=== PATIENT | female | born 1990 | race Caucasian/White ===

== ENCOUNTER → 2018-02-22 19:01 | Outpatient (CLI) | payer OTHER, SELFPAY ==
[2018-02-22 19:51] LABS: Basophils # 0.1 K/mm3 (0-0.2); Basophils % 0.6 % (0.1-2.0); Eosinophils # 0.1 K/mm3 (0.0-0.4); Eosinophils % 0.5 % (0.1-12.0); Hematocrit 44.7 % (37.0-47.0); Hemoglobin 14.6 g/dL (12.2-16.2); Lymphocytes # 2.9 K/mm3 (0.7-4.5); Lymphocytes % 27.4 % (10-50); Mean Corpuscular HGB Conc 32.7 g/dL (31.8-35.4); Mean Corpuscular Hemoglobin 30.3 pg (27.0-31.2); Mean Corpuscular Volume 92.7 fl (81-99); Mean Platelet Volume 7.1 fl (7.4-10.4); Monocytes # 0.5 K/mm3 (0.1-1.0); Neutrophils % 66.5 % (37.0-80.0); Platelet Count 565 K/mm3 (142-424); Red Blood Count 4.82 M/mm3 (4.20-5.40); Red Cell Distribution Width 12.9 % (11.5-17.5); White Blood Count 10.5 K/mm3 (4.8-10.8)
[2018-02-22 20:42] LABS: Alanine Aminotransferase 23 U/L (12-78); Albumin Level 4.5 gm/dL (3.4-5.0); Albumin/Globulin Ratio 1.2 (1.1-1.8); Alkaline Phosphatase 86 U/L (46-116); Anion Gap 17.2 mEq/L (5-15); Aspartate Amino Transferase 21 U/L (15-37); Bilirubin,Total 0.2 mg/dL (0.2-1.0); Blood Urea Nitrogen 9 mg/dL (7-18); Carbon Dioxide 24 mmol/L (21.0-32.0); Chloride 103 mmol/L (98-107); Chol/HDL Ratio 7.8 (1-3.5); Cholesterol 274 mg/dL (140-200); Creatinine,Serum 0.92 mg/dL (0.55-1.02); Estimated Glomerular Filt Rate 74 ml/min (>60); GFR (African American) 89 ML/MIN (>60); Globulin 3.9 gm/dl (1.3-3.2); Glucose 77 mg/dL (74-106); HDL Cholesterol 35 mg/dL (29-89); LDL Cholesterol 175 mg/dL (0-130); Potassium 4.2 mmoL/L (3.5-5.1); Sodium 140 mmol/L (136-145); T4 (Thyroxine) 8.1 ug/dl (4.7-13.3); Thyroid Stimulating Hormone 2.27 uIU/ml (0.358-3.740); Total Protein,Serum 8.4 gm/dL (6.4-8.2); Triglycerides 319 mg/dL (30-200); VLDL Cholesterol 64 mg/dL (0-40)
[2018-02-24 15:52] LABS: Vitamin D 25 Hydroxy 18.4 ng/mL (30.0-100.0)
== END ==
LOC: LAB 02-23 10:16 → LAB.DROPOF 02-23 11:11
PROVIDERS: PCP Nurse Practitioner Family; Visit Provider Nurse Practitioner Family
DX: F32.9 Major depressive disorder, single episode, unspecified (principal); R53.83 Other fatigue; I10 Essential (primary) hypertension
CPT/HCPCS: 80053; 80061; 82652; 84436; 84443; 85025

== ENCOUNTER → 2018-06-01 14:48 | Outpatient (CLI) | payer OTHER, SELFPAY | PROVIDERS: PCP Nurse Practitioner Family; Visit Provider Internal Medicine Cardiovascular Disease | DX: I49.3 Ventricular premature depolarization (principal); R00.2 Palpitations | CPT/HCPCS: 93225 ==

== ENCOUNTER → 2018-06-15 11:02 | Outpatient (CLI) | payer OTHER, SELFPAY ==
--- NOTE | 2018-06-15 11:04 | CA_ITS ---
PROCEDURE: 2-D M-mode and color Doppler study INDICATIONS FOR THE TEST: Chest pain COPD Heart Murmur Tobacco SmokingX Palpitations Fatigue Syncope Edema HypertensionXDiabetes Mellitus Rheumatic Fever SOB NUNES ObesityXHyperlipidemiaX Family History HDX Additional History ABN EKG,FREQ PVCS PATIENT INFORMATION HEIGHT: 62 WEIGHT:203 GENDER: Female B/P:156/108 2-D/M-MODE INTERPRETATION: 2-D MEASUREMENTS OBSERVED VALUES IN CMS Right Ventricular Dimension (RVDd) 2.6 Interventricular Septum (Thickness)(IVsd) .9 Left Ventricular Internal Dimensions(LVIDd) 5.3 Left Ventricular Posterior Wall (Thickness)(LVPWd) .9 Aortic Root 2.9 Aortic Cusp Separation 2.0 Left Atrial Dimensions (LAD) 3.1 2D 1. Left atrium is normal size, left ventricle is normal size, there is no concentric left ventricular hypertrophy, preserved left ventricular systolic function, visually estimated ejection fraction 55% with no regional wall motion abnormality. 2. The right atrium and right ventricle are normal size and contractility. 3. The aortic, mitral and tricuspid valvular grossly normal. 4. The pulmonic valve is poorly present. 5. No significant pericardial effusion noted. DOPPLER INTERROGATION: Doppler interrogation of the aortic, mitral and tricuspid valvular presence of mild mitral and tricuspid regurgitation, tricuspid regurgitation jet velocity is inadequate for calculation of the right ventricular systolic pressure, diastolic parameters are within normal range. CONCLUSION: 1. Normal left ventricular size, preserved left ventricular systolic function, visually estimated ejection fraction 55% with no regional wall motion abnormality, diastolic parameters are within normal range. 2. Mild mitral and tricuspid regurgitation 3. No significant pericardial effusion noted.
== END ==
PROVIDERS: PCP Emergency Medicine; Visit Provider Internal Medicine Cardiovascular Disease
DX: I49.3 Ventricular premature depolarization (principal); R00.2 Palpitations
CPT/HCPCS: 93306

== ENCOUNTER → 2018-07-05 12:44 | Outpatient (CLI) | payer OTHER, SELFPAY | PROVIDERS: PCP Nurse Practitioner Family; Visit Provider Internal Medicine Cardiovascular Disease | DX: R06.83 Snoring (principal); R40.0 Somnolence; E66.9 Obesity, unspecified; I49.3 Ventricular premature depolarization; R00.2 Palpitations; R53.83 Other fatigue; G47.30 Sleep apnea, unspecified | CPT/HCPCS: 95806 ==

== ENCOUNTER → 2022-05-05 12:02 | Outpatient (CLI) | payer OTHER, SELFPAY ==
[2022-05-05 12:35] LABS: Basophils # 0.1 K/mm3 (0-0.2); Basophils % 0.4 % (0.1-2.0); Eosinophils # 0.1 K/mm3 (0.0-0.4); Eosinophils % 0.9 % (0.1-12.0); Hematocrit 36.1 % (37.0-47.0); Hemoglobin 11.6 g/dL (12.2-16.2); Lymphocytes # 2.6 K/mm3 (0.7-4.5); Lymphocytes % 22.4 % (10-50); Mean Corpuscular HGB Conc 32.2 g/dL (31.8-35.4); Mean Corpuscular Hemoglobin 30.1 pg (27.0-31.2); Mean Corpuscular Volume 93.5 fl (81-99); Mean Platelet Volume 7.3 fl (7.4-10.4); Monocytes # 0.4 K/mm3 (0.1-1.0); Monocytes % 3.6 % (1.7-9.3); Neutrophils # 8.5 K/mm3 (1.8-7.8); Neutrophils % 72.7 % (37.0-80.0); Platelet Count 589 K/mm3 (142-424); Red Blood Count 3.86 M/mm3 (4.20-5.40); White Blood Count 11.6 K/mm3 (4.8-10.8)
[2022-05-05 13:20] LABS: Chloride 111 mmol/L (98-107); Sodium 140 mmol/L (136-145)
[2022-05-05 13:23] LABS: Alanine Aminotransferase 11 U/L (12-78); Albumin Level 4.3 g/dl (3.5-5.0); Albumin/Globulin Ratio 1.3 (1.1-1.8); Alkaline Phosphatase 85 U/L (38-126); Aspartate Amino Transferase 20 U/L (14-36); Bilirubin,Total 0.3 mg/dl (0.2-1.3); Blood Urea Nitrogen 4 mg/dl (7-17); Calcium 9.4 mg/dl (8.4-10.2); Carbon Dioxide 20 mmol/L (22.0-30.0); Estimated Glomerular Filt Rate 117 ml/min (>60); GFR (African American) 142 ML/MIN (>60); Globulin 3.3 g/dL (1.3-3.2); Glucose 78 mg/dl (74-100); Total Protein,Serum 7.6 g/dl (6.3-8.2)
[2022-05-05 19:53] LABS: Creatinine,Urine Random 18 mg/dL (Not Estab.)
[2022-05-05 21:07] LABS: Microalbumin/Creatinine Ratio 46.1
[2022-05-06 06:53] LABS: Rubella Antibodies, IgG 2.45 index (Immune >0.99)
[2022-05-06 08:58] LABS: HIV Screen 4th Generation wRfx Non Reactive (Non Reactive)
[2022-05-06 10:18] LABS: Rapid Plasma Reagin Ab Titer Non Reactive (NonRea<1:1)
[2022-05-08 22:44] LABS: Hepatitis B Surface Antigen NEGATIVE; Hepatitis C Antibody <0.1
== END ==
PROVIDERS: PCP Nurse Practitioner Family; Visit Provider Obstetrics & Gynecology
DX: Z34.90 Encounter for supervision of normal pregnancy, unspecified, unspecified trimester (principal); I10 Essential (primary) hypertension
CPT/HCPCS: 36415; 80053; 82043; 82570; 85025; 86593; 86703; 86762; 86850; 87086; 87340; 87380; G0432

== ENCOUNTER → 2022-05-13 14:11 | Outpatient (CLI) | payer OTHER, SELFPAY ==
--- NOTE | 2022-05-13 14:11 | US_ITS ---
FINAL REPORT CLINICAL HISTORY: OB complete FINDINGS: There is a single live intrauterine gestation. Presentation is breech. The cervix is closed and measures 3 cm. Placenta is anterior, grade 1. Heart rate is measured at 144 beats per minute. movement is noted. AMNIOTIC FLUID: Appropriate amount. MEASUREMENTS: ULTRASOUND AGE: 20 weeks 5 days. GESTATION AGE: 21 weeks 1 days. ESTIMATED WEIGHT: 349 grade GROWTH PERCENTILE: 12% LMP percentile BPD: 5.0 cm corresponding with 21 weeks 2 days. OFD: 6.2 cm corresponding with 21 weeks 0 days. HC: 17.8 cm corresponding with 20 weeks 2 days. AC: 14.8 cm corresponding with 20 weeks 1 days. FL: 3.4 cm corresponding with 20 weeks 5 days. CEREBELLUM: 2.1 cm corresponding with 21 weeks 1 days. HUMERUS: 3.3 cm corresponding with 21 weeks 2 days. HC/AC: 1.2 CI: 80% FL/BPD: 67% FL/AC: 23% IMPRESSION: Single living IUP with an ultrasound age of 20 weeks 5 days. No gross anomalies noted. Reviewed, Interpreted and Dictated by Daisy Meadows MD Transcribed by Aspen Ruth Authenticated and [facility]
== END ==
PROVIDERS: PCP Nurse Practitioner Family; Visit Provider Obstetrics & Gynecology
DX: Z34.90 Encounter for supervision of normal pregnancy, unspecified, unspecified trimester (principal)
CPT/HCPCS: 76811

== ENCOUNTER 2022-06-01 10:31 | Observation (INO) | payer OTHER, SELFPAY ==
[2022-06-01] VITALS (13 sets, daily range): BP systolic 103–149; BP diastolic 53–78; PULSE 40–76; RESP 16–17; TEMP 36.4–36.8; O2SAT 99; BMI 36.0
--- NOTE | 2022-06-01 10:42 | CA_ITS ---
APPROVED REPORT EXAM: Comprehensive 2D, Doppler, and color-flow Echocardiogram Tableau Analyst: Shawanda Kennedy RVT Ht: 5 ft 2 in Wt: 197lbs BSA: 1.90 BP: 190/90 mmHg Indications: 24 WKS PREG,HTN,SMOKER 2D Dimensions LVOT 2.11 cm (M/F) 1.5-2.5 LA Volume 41.60 mL LA Volume Index 21.89 mL/m2 (M/F) 16-34 M-Mode Dimensions RVDd 2.35 cm (0.9-2.6) LA Diam 4.17 cm (1.9-4.0) LVDd 4.93 cm (3.5-5.7) Ao Diam 2.82 cm (2.0-3.7) LVDs 3.41 cm (3.5-5.7) IVSd 1.37 cm (0.6-1.1) PWd 0.68 cm (0.6-1.1) EF (Teich) 58.20% FS 30.80% EDV (Teich) 114.40 mL ESV (Teich) 47.80 mL LV Diastology E Decel Time 150.00 (160-240 msec) E/A Ratio 1.1 MED E' 13.40 (< 7 cm/sec) E'/MED E' Ratio 5.73 (>14) LAT E' 7.10 (<10 cm/sec) E/LAT E' Ratio 10.82 (>14) Aortic Valve AO Peak GR. 7.60 mmHg Mitral Valve MV E Max Tino. 77.00 (40-130 cm/s) MV A Velocity 67.00 (40-130 cm/s) E/A Ratio 1.14 MV Decel. Time 150.00 (160-240 ms) MV PHT 44.00 ms Pulmonary Valve PV Peak Velocity 108.00 (50-150 cm/s) Tricuspid Valve TR P. Velocity 181.00 cm/s RAP Estimate 10.00 mmHg RVSP 23.10 mmHg Left Ventricle Left atrium is normal size left ventricle is normal size, estimated ejection fraction 55% with no regional wall motion abnormality, diastolic parameters are within normal range. Right Ventricle Right atrium and right ventricular normal size and contractility. Aortic Valve Aortic valve is grossly normal there is no aortic stenosis aortic insufficiency. Mitral Valve Mitral valve is grossly normal, there is no significant mitral regurgitation. Tricuspid Valve Tricuspid valve is grossly normal, there is no significant tricuspid regurgitation. Pulmonic Valve Pulmonic valve is poorly visualized. Great Vessels Aortic root is normal size. Inferior vena cava is normal size with normal inspiratory collapse. Pericardium No significant pericardial effusion noted. Conclusion 1. Normal left ventricular size preserved left ventricular systolic function, estimated ejection fraction 55% with no regional wall motion abnormality, diastolic parameters are within normal range. 2. No significant pericardial effusion noted. 3. Inferior vena cava is normal size with normal inspiratory collapse. Electronically signed by : Lupillo Mccoy MD 06/02/2022 05:58:54
[2022-06-01 11:38] LABS: Basophils # 0.1 K/mm3 (0-0.2); Basophils % 0.7 % (0.1-2.0); Eosinophils # 0.1 K/mm3 (0.0-0.4); Eosinophils % 0.5 % (0.1-12.0); Hematocrit 35.3 % (37.0-47.0); Hemoglobin 11.9 g/dL (12.2-16.2); Lymphocytes # 3.1 K/mm3 (0.7-4.5); Lymphocytes % 19.5 % (10-50); Mean Corpuscular HGB Conc 33.6 g/dL (31.8-35.4); Mean Corpuscular Hemoglobin 30.4 pg (27.0-31.2); Mean Corpuscular Volume 90.6 fl (81-99); Mean Platelet Volume 7.3 fl (7.4-10.4); Monocytes # 0.6 K/mm3 (0.1-1.0); Monocytes % 3.7 % (1.7-9.3); Neutrophils % 75.6 % (37.0-80.0); Platelet Count 637 K/mm3 (142-424); Red Cell Distribution Width 13.3 % (11.5-17.5); White Blood Count 15.9 K/mm3 (4.8-10.8)
[2022-06-01 11:40] LABS: Coronavirus 19, PCR Not Detected (NotDetected); Influenza A, PCR Not Detected (NotDetected); Influenza B, PCR Not Detected (NotDetected); MANUAL DIFFERENTIAL MANUAL DIFFERENTIAL (MANUAL DIFF)
[2022-06-01 12:16] LABS: Activated Partial Thrombo Time 27.1 seconds (22.8-30.6); Fibrinogen 712 mg/dL (229.9-363.5); Prothrombin Time 9.8 seconds (10.1-12.5)
[2022-06-01 12:19] LABS: Lymphocytes % 23 % (10-50); Monocytes % 6 % (2-9); Neutrophils % 71 % (42-76); Platelet Estimate Slight Increase; RBC Morphology Normal; Total Cells Counted 100
--- NOTE | 2022-06-01 12:50 | EXP.CARD.CON ---
History of Present Illness History of Present Illness Consult date: 06/01/22 Requesting physician: Monica Lainez Chief complaint: Hypertension Additional Medical History:: Significant past medical history Currently 23 weeks, 3 days Hypertension History of medical noncompliance History of present illness: 31-year-old white female with above past medical history presented to [facility] office for routine follow-up for . Patient is currently 23 weeks, 3 days with first . Patient reported history of a elevated blood pressure readings in the 140s-150s and dizziness. Patient has history of hypertension in which she has been prescribed labetalol previously. Patient reports she took it for 3 days and discontinued it due to dizziness and not feeling well on it. Patient denies headache, chest pain, shortness of breath, lower extremity edema, vaginal bleeding or abdominal pain currently. Patient states she does not want to be placed back on labetalol and makes her feel too bad. [facility] Disclaimer: The information contained in this section may have been updated after the patient was seen, as this information can be updated by other users. Medical History (Updated 06/01/22 @ 13:00 by Shante Lancaster APRN) Headache Hypertension affecting Maternal obesity affecting , antepartum Nausea and vomiting in Family History Mother Heart attack, Onset Age: 47 Other Stroke Social History Smoking Status: Current every day smoker tobacco type: cigarettes packs per day: 1 alcohol intake: never substance use type: denies use and marijuana current occupational status: employed Travel in the last 8 weeks: None Review of Systems Review of Systems Review of systems:: pertinent systems reviewed and negative unless documented below Exam Data for Last 24 hours Vital signs and Labs for Last 24 Hours: Pulse Resp BP 44 L 16 118/62 06/01/22 11:54 06/01/22 11:54 06/01/22 11:54 Laboratory Results - last 24 hr 06/01/22 11:00: WBC 15.9 H, RBC 3.90 L, Hgb 11.9 L, Hct 35.3 L, MCV 90.6, MCH 30.4, MCHC 33.6, RDW 13.3, Plt Count 637 H, MPV 7.3 L, Neut % (Auto) 75.6, Lymph % (Auto) 19.5, [place] % (Auto) 3.7, Eos % (Auto) 0.5, Baso % (Auto) 0.7, Neut # (Auto) 12.0 H, Lymph # (Auto) 3.1, [place] # (Auto) 0.6, Eos # (Auto) 0.1, Baso # (Auto) 0.1, Total Counted 100, Neutrophils % (Manual) 71, Lymphocytes % (Manual) 23, Monocytes % (Manual) 6, Platelet Estimate Slight increase, RBC Morphology Normal 06/01/22 11:00: PT 9.8 L, INR 0.90, APTT 27.1, Fibrinogen 712 H 06/01/22 11:00: SARS-CoV-2 (PCR) Not detected, Influenza A Untype (PCR) Not detected, Influenza Type B (PCR) Not detected I & O for Last 24 hours: Intake & Output 05/29/22 05/30/22 05/31/22 06/01/22 23:59 23:59 23:59 23:59 Weight 197 lb Constitutional Constitutional: no acute distress *Routine Respiratory Exam Respiratory: Present CTA bilaterally and symmetric chest movement *Routine Cardiovascular Exam Cardiovascular: Present RRR, Normal S1 and Normal S2 *Routine Abdominal Exam Abdominal: Present soft and normoactive bowel sounds; Absent tenderness *Routine Extremities Exam Extremities: Present full ROM and normal capillary refill; Absent edema *Routine Skin Exam Skin: Present intact, dry and warm Detailed Neck Exam: Thyroids Thyroid: Absent bruit Meds Home Medications and Allergies Home Medications Medication Instructions Recorded Confirmed Type PNV no.63-iron,carbonyl 27mg-folic 1 cap PO DAILY #30 caps 05/05/22 06/01/22 Rx acid 800 mcg-dha 200 mg capsule labetalol 100 mg tablet 100 mg PO BID #60 tabs 05/05/22 06/01/22 Rx ondansetron 4 mg disintegrating 4 mg PO Q8H PRN nausea and 05/05/22 06/01/22 Rx tablet vomiting #30 tabs New Prescriptions to Start Prescriptions: Allergies
[2022-06-01 13:04] LABS: Anion Gap 14.7 mEq/L (5-15); Blood Urea Nitrogen 8 mg/dl (7-17); Carbon Dioxide 19 mmol/L (22.0-30.0); Chloride 110 mmol/L (98-107); Creatinine Clearance Estimated 166 mL/min (50-200); Estimated Glomerular Filt Rate 98 ml/min (>60); GFR (African American) 119 ML/MIN (>60); Glucose 75 mg/dl (74-100); Potassium 3.7 mmoL/L (3.5-5.1); Sodium 140 mmol/L (136-145)
[2022-06-01 13:05] LABS: Alanine Aminotransferase 15 U/L (12-78); Aspartate Amino Transferase 24 U/L (14-36); Calcium 9.7 mg/dl (8.4-10.2); Magnesium 1.6 mg/dl (1.6-2.3)
[2022-06-01 13:50] LABS: Microscopic, Urine URINE MICROSCOPIC (MICROSCOPIC)
--- NOTE | 2022-06-01 14:08 | ECG_ITS ---
APPROVED REPORT Exam: Resting ECG HR:92 bpm ECG Measurements Heart Rate 92 AXES MI 122 P 143 QRSd 93 QRS 146 QT 373 T 0 QTc 422 Conclusion SINUS RHYTHM WITH FREQUENT VENTRICULAR PREMATURE COMPLEXES IN A BIGEMINAL PATTERN LEFT POSTERIOR FASCICULAR BLOCK [QRS AXIS > 109, INFERIOR Q] NONSPECIFIC ST & T-WAVE ABNORMALITY ABNORMAL ECG UNCONFIRMED REPORT Electronically signed by : Waldemar Patricia MD 06/01/2022 21:14:22
[2022-06-01 15:04] LABS: Appearance,Urine CLEAR (Clear); Bilirubin,Urine Negative (Negative); Blood, Urine Negative (Negative); Color,Urine YELLOW (Yellow); Glucose,Urine (UA) Negative (Negative); Ketones,Urine Negative (Negative); Leukocyte Esterase,Urine 1+ (Negative); Nitrate,Urine Negative (Negative); Protein,Urine Negative (Negative); Urobilinogen,Urine 0.2 EU/dl (0.2)
[2022-06-01 15:16] LABS: Squamous Epithelial Cell,Urine Occasional #/hpf (0-5)
--- NOTE | 2022-06-01 15:23 | PC.NURSE ---
called to check on pt report given. Orders given to keep pt overnight and she will round in the morning
--- NOTE | 2022-06-01 15:25 | PC.NURSE ---
Spoke with pharmacy about carvedilol use while . ACOG recommends use of nifedipine, Hydralizine, or labetalol during .
--- NOTE | 2022-06-01 15:30 | PC.NURSE ---
Shante in cardiology notified of medication not being recommended during . orders placed for bisprolol 10mg
[2022-06-01 16:26] LABS: D-Dimer 0.65 ug/mL (0.0-0.5)
[2022-06-01 16:56] LABS: Amphetamine/Metha Screen,Urine Negative ng/ml (<1000); Barbiturates Screen,Urine Negative ng/ml (<200); Benzodiazepines Screen,Urine Negative ng/ml (<200); Cannabinoid Screen,Urine Negative ng/ml (<50); Cocaine Screen,Urine Negative ng/ml (<300); Methadone Screen,Urine Negative ng/ml (<300); Opiate Screen,Urine Negative ng/ml (<300); Phencyclidine Screen,Urine Negative ng/ml (<25)
[2022-06-01 17:28] LABS: Uric Acid 5.1 mg/dl (2.5-6.2)
[2022-06-02 01:57] VITALS: BP 102/57; PULSE 40
[2022-06-02 04:04] VITALS: BP 107/58; PULSE 40; RESP 17; TEMP 37; O2SAT 99
[2022-06-02 06:05] VITALS: BP 117/56; PULSE 39
--- NOTE | 2022-06-02 07:17 | HMH.PHAINT1 ---
Pharmacy Intervention Comments: MEDICATION RECONCILIATION COMPLETED ON PATIENT USING EXTERNAL FILL HISTORY FROM PHARMACY. -OLIVER MARTINEZ, DARIOD
--- NOTE | 2022-06-02 07:45 | ECG_ITS ---
APPROVED REPORT Exam: Resting ECG HR:73 bpm ECG Measurements Heart Rate 73 AXES CA 151 P 29 QRSd 97 QRS 42 QT 390 T 7 QTc 416 Conclusion SINUS ARRYTHMIA WITH OCCASIONAL VENTRICULAR PREMATURE COMPLEXES BORDERLINE ECG UNCONFIRMED REPORT Electronically signed by : Waldemar Patricia MD 06/02/2022 08:51:51
--- NOTE | 2022-06-02 07:56 | EXP.CARD.PN ---
Subjective Subjective Date: 06/02/22 Time: 08:00 Principal diagnosis: htn during Interval history: doing well, no complaints. labs reviewed. BP improved to 117/56 Exam Data for Last 24 hours Vital signs and Labs for Last 24 Hours: Temp Pulse Resp BP Pulse Ox 98.6 F 39 L 17 117/56 L 99 06/02/22 04:04 06/02/22 06:05 06/02/22 04:04 06/02/22 06:05 06/02/22 04:04 Laboratory Results - last 24 hr 06/01/22 10:36: Urine Color Yellow, Urine Appearance Clear, Urine pH 7.0, Ur Specific [place] 1.010, Urine Protein Negative, Urine Glucose (UA) Negative, Urine Ketones Negative, Urine Blood Negative, Urine Nitrate Negative, Urine Bilirubin Negative, Urine Urobilinogen 0.2, Ur Leukocyte Esterase 1+ A, Urine RBC None, Urine WBC None, Ur Squamous Epith Cells Occasional, Urine Bacteria None 06/01/22 10:36: Urine Opiates Screen Negative, Urine Methadone Screen Negative, Ur Barbituates Screen Negative, Ur Phencyclidine Scrn Negative, Ur Amphetamines Screen Negative, U Benzodiazepines Scrn Negative, Urine Cocaine Screen Negative, U Marijuana (THC) Screen Negative 06/01/22 11:00: WBC 15.9 H, RBC 3.90 L, Hgb 11.9 L, Hct 35.3 L, MCV 90.6, MCH 30.4, MCHC 33.6, RDW 13.3, Plt Count 637 H, MPV 7.3 L, Neut % (Auto) 75.6, Lymph % (Auto) 19.5, [place] % (Auto) 3.7, Eos % (Auto) 0.5, Baso % (Auto) 0.7, Neut # (Auto) 12.0 H, Lymph # (Auto) 3.1, [place] # (Auto) 0.6, Eos # (Auto) 0.1, Baso # (Auto) 0.1, Total Counted 100, Neutrophils % (Manual) 71, Lymphocytes % (Manual) 23, Monocytes % (Manual) 6, Platelet Estimate Slight increase, RBC Morphology Normal 06/01/22 11:00: PT 9.8 L, INR 0.90, APTT 27.1, Fibrinogen 712 H 06/01/22 11:00: D-Dimer 0.65 H, Sodium 140, Potassium 3.7, Chloride 110 H, Carbon Dioxide 19 L, Anion Gap 14.7, BUN 8, Creatinine 0.70, Estimated Creat Clear 166, Estimated GFR 98, Est GFR ( Amer) 119, Glucose 75, Uric Acid 5.1, Calcium 9.7, Magnesium 1.6, AST 24, ALT 15 06/01/22 11:00: SARS-CoV-2 (PCR) Not detected, Influenza A Untype (PCR) Not detected, Influenza Type B (PCR) Not detected I & O for Last 24 hours: Intake & Output 05/30/22 05/31/22 06/01/22 06/02/22 23:59 23:59 23:59 23:59 Weight 197 lb Constitutional Constitutional: no acute distress *Routine Respiratory Exam Respiratory: Present CTA bilaterally and symmetric chest movement *Routine Cardiovascular Exam Cardiovascular: Present RRR, Normal S1 and Normal S2 *Routine Abdominal Exam Abdominal: Present soft and normoactive bowel sounds; Absent tenderness *Routine Extremities Exam Extremities: Present full ROM and normal capillary refill; Absent edema *Routine Skin Exam Skin: Present intact, dry and warm Detailed Neck Exam: Thyroids Thyroid: Absent bruit Progress Note: A&P Assessment and plan (1) HTN (hypertension): Status: Chronic (2) Bradycardia: Status: Acute (3) : Status: Acute Assessment and Plan Assessment and Plan for All Diagnoses:: HTN-uncontrolled/23 weeks -Echo EF of 55 with irregular rhythm reported. -EKG shows- SR with frequent ventricular premature complexes in a bigeminal pattern, rate 92 -Patient evaluated per Dr. Waters, recommend starting patient on bisoprolol 10mg daily for rate and BP control. He recommends cardiac MRI after for further eval. Patient is agreeable with plan. 06/02/2022- Bp improved to 117/56. Repeat EKG this am shows significantly fewer PVCs and a rate of 73 Current smoker -smoking cessation advised CV summary 06/02/2022: CV stable for dc home. Please send patient home on bisoprolol 10mg daily and have patient follow up in office in 1 week. We will consider Cardiac MRI after for further evaluation.
[2022-06-02 08:00] VITALS: BP 117/56; PULSE 50; RESP 17; TEMP 36.6
--- NOTE | 2022-06-02 09:11 | EXP.HPDC ---
General Admission date:: 06/01/22 Discharge date: 06/02/22 *Chief complaint: Elevated blood pressure, headache *History of present illness: Mrs Radha Thomas is a 31 yo at 23w4d admitted for observation to [facility] Delivery on 06/01/22 for severe range BP in the office with headache x 3 days. She has history of chronic hypertension. She saw cardiology in the past, ~ 2-3 years ago. At her initial Ob visit, ~ 20 weeks, her BP was 158/88. She was started on Labetalol 100 mg BID but stated she stopped it after 3 days because she felt dizzy. She did not call the office or tell anyone she stopped it. Baby is very active. She denies vision changes and RUQ/epigastric pain and swelling. Denies chest pain and shortness of breath. She believed her BP was elevated and her headache was present secondary to stress at work. She did not take any medication for her headache. [facility] Disclaimer: The information contained in this section may have been updated after the patient was seen, as this information can be updated by other users. Medical History (Updated 06/02/22 @ 11:20 by Monica Lainez DO) 23 weeks gestation of Headache Hypertension affecting Maternal obesity affecting , antepartum Nausea and vomiting in Family History Mother Heart attack, Onset Age: 47 Other Stroke Social History Smoking Status: Current every day smoker tobacco type: cigarettes packs per day: 1 alcohol intake: never substance use type: denies use and marijuana current occupational status: employed Travel in the last 8 weeks: None Review of Systems Review of Systems Review of systems:: pertinent systems reviewed and negative unless documented below Constitutional Constitutional: Reports headache(s) (resolved since admission) ENT Ears, Nose, Mouth, and Throat: Reports headache(s) (resolved since admission) *Neurologic Neurologic: Reports headache(s) (resolved since admission) Exam Data for Last 24 hours Vital signs and Labs for Last 24 Hours: Temp Pulse Resp BP Pulse Ox 98.6 F 39 L 17 117/56 L 99 06/02/22 04:04 06/02/22 06:05 06/02/22 04:04 06/02/22 06:05 06/02/22 04:04 Laboratory Results - last 24 hr 06/01/22 10:36: Urine Color Yellow, Urine Appearance Clear, Urine pH 7.0, Ur Specific [place] 1.010, Urine Protein Negative, Urine Glucose (UA) Negative, Urine Ketones Negative, Urine Blood Negative, Urine Nitrate Negative, Urine Bilirubin Negative, Urine Urobilinogen 0.2, Ur Leukocyte Esterase 1+ A, Urine RBC None, Urine WBC None, Ur Squamous Epith Cells Occasional, Urine Bacteria None 06/01/22 10:36: Urine Opiates Screen Negative, Urine Methadone Screen Negative, Ur Barbituates Screen Negative, Ur Phencyclidine Scrn Negative, Ur Amphetamines Screen Negative, U Benzodiazepines Scrn Negative, Urine Cocaine Screen Negative, U Marijuana (THC) Screen Negative 06/01/22 11:00: WBC 15.9 H, RBC 3.90 L, Hgb 11.9 L, Hct 35.3 L, MCV 90.6, MCH 30.4, MCHC 33.6, RDW 13.3, Plt Count 637 H, MPV 7.3 L, Neut % (Auto) 75.6, Lymph % (Auto) 19.5, [place] % (Auto) 3.7, Eos % (Auto) 0.5, Baso % (Auto) 0.7, Neut # (Auto) 12.0 H, Lymph # (Auto) 3.1, [place] # (Auto) 0.6, Eos # (Auto) 0.1, Baso # (Auto) 0.1, Total Counted 100, Neutrophils % (Manual) 71, Lymphocytes % (Manual) 23, Monocytes % (Manual) 6, Platelet Estimate Slight increase, RBC Morphology Normal 06/01/22 11:00: PT 9.8 L, INR 0.90, APTT 27.1, Fibrinogen 712 H 06/01/22 11:00: D-Dimer 0.65 H, Sodium 140, Potassium 3.7, Chloride 110 H, Carbon Dioxide 19 L, Anion Gap 14.7, BUN 8, Creatinine 0.70, Estimated Creat Clear 166, Estimated GFR 98, Est GFR ( Amer) 119, Glucose 75, Uric Acid 5.1, Calcium 9.7, Magnesium 1.6, AST 24, ALT 15 06/01/22 11:00: SARS-CoV-2 (PCR) Not detected, Influenza A Untype (PCR) Not detected, Influenza Type B (PCR) Not detected I &
[2022-06-02 11:50] LABS: Total Protein 24 Hour,Urine 504 mg/24 hr (40-90); Total Volume,Urine 3150 mL (600-1600)
[2022-06-02 16:32] LABS: Ferritin 49.3 ng/ml (6.24-137)
== END 2022-06-02 12:00 | disposition home or self-care (01) ==
LOC: OBOUT 17:13 → OB 17:14
PROVIDERS: Admitting Provider Obstetrics & Gynecology; PCP Nurse Practitioner Family; Visit Provider Obstetrics & Gynecology
DX: O10.012 Pre-existing essential hypertension complicating pregnancy, second trimester (principal); Z3A.23 23 weeks gestation of pregnancy; O99.891 Other specified diseases and conditions complicating pregnancy; R00.1 Bradycardia, unspecified; I49.3 Ventricular premature depolarization; Z20.822 Contact with and (suspected) exposure to COVID-19
CPT/HCPCS: 80048; 80305; 81001; 82728; 83735; 84155; 84450; 84460; 84550; 85007; 85025; 85378; 85384; 85610; 85730; 87086; 93005; 93306; C9803; G0378; U0003; U0005

== ENCOUNTER 2022-06-07 14:31 | Outpatient (CLI) | payer OTHER, SELFPAY ==
[2022-06-07 14:57] VITALS: BMI 36.0
[2022-06-07 15:09] VITALS: BP 149/53; PULSE 55; RESP 18; TEMP 36.6; O2SAT 100; BMI 36.0
[2022-06-07 15:12] LABS: Microscopic, Urine URINE MICROSCOPIC (MICROSCOPIC)
[2022-06-07 15:21] LABS: Appearance,Urine CLEAR (Clear); Bilirubin,Urine Negative (Negative); Blood, Urine Negative (Negative); Color,Urine YELLOW (Yellow); Glucose,Urine (UA) Negative (Negative); Ketones,Urine Negative (Negative); Leukocyte Esterase,Urine 2+ (Negative); Nitrate,Urine Negative (Negative); Protein,Urine Negative (Negative); Specific Gravity, Urine 1.015 (1.005-1.030); Urobilinogen,Urine 0.2 EU/dl (0.2)
[2022-06-07 15:35] LABS: Amphetamine/Metha Screen,Urine Negative ng/ml (<1000); Benzodiazepines Screen,Urine Negative ng/ml (<200)
[2022-06-07 15:36] LABS: Barbiturates Screen,Urine Negative ng/ml (<200)
[2022-06-07 15:37] LABS: Cannabinoid Screen,Urine Negative ng/ml (<50); Methadone Screen,Urine Negative ng/ml (<300)
[2022-06-07 15:38] LABS: Cocaine Screen,Urine Negative ng/ml (<300); Opiate Screen,Urine Negative ng/ml (<300)
[2022-06-07 15:39] LABS: Phencyclidine Screen,Urine Negative ng/ml (<25)
[2022-06-07 15:42] LABS: Bacteria,Urine 1+ /lpf
== END 2022-06-07 15:31 | disposition home or self-care (01) ==
LOC: OBOUT 14:32 → OB 14:33
PROVIDERS: PCP Nurse Practitioner Family; Visit Provider Obstetrics & Gynecology
DX: O26.892 Other specified pregnancy related conditions, second trimester (principal); Z3A.24 24 weeks gestation of pregnancy
CPT/HCPCS: 80305; 81001; 87086; G0463

== ENCOUNTER → 2022-06-09 14:10 | Outpatient (CLI) | payer OTHER, SELFPAY ==
[2022-06-09 15:34] LABS: Magnesium 1.4 mg/dl (1.6-2.3)
[2022-06-09 15:52] LABS: Free Thyroxine Index 2.7 ug/dL (5.93-13.13); T4 (Thyroxine) 12.7 ug/dl (5.53-11.0); Triiodothryronine (T3) Uptake 21 % (23.5-40.5)
== END ==
PROVIDERS: PCP Nurse Practitioner Family; Visit Provider Physician Assistant
DX: I49.3 Ventricular premature depolarization (principal); Z3A.25 25 weeks gestation of pregnancy; I10 Essential (primary) hypertension; G89.29 Other chronic pain; R51.9 Headache, unspecified
CPT/HCPCS: 36415; 83735; 84436; 84443; 84479; 93225; 93226

== ENCOUNTER → 2022-07-01 08:37 | Outpatient (CLI) | payer OTHER, SELFPAY ==
[2022-07-01 09:32] LABS: Basophils % 0.3 % (0.1-2.0); Eosinophils # 0.1 K/mm3 (0.0-0.4); Eosinophils % 0.6 % (0.1-12.0); Hematocrit 32.9 % (37.0-47.0); Hemoglobin 10.7 g/dL (12.2-16.2); Lymphocytes # 2.4 K/mm3 (0.7-4.5); Lymphocytes % 18.9 % (10-50); Mean Corpuscular HGB Conc 32.5 g/dL (31.8-35.4); Mean Corpuscular Hemoglobin 29.9 pg (27.0-31.2); Mean Corpuscular Volume 92.1 fl (81-99); Mean Platelet Volume 7.3 fl (7.4-10.4); Monocytes # 0.5 K/mm3 (0.1-1.0); Monocytes % 3.6 % (1.7-9.3); Neutrophils # 9.7 K/mm3 (1.8-7.8); Neutrophils % 76.6 % (37.0-80.0); Platelet Count 588 K/mm3 (142-424); Red Blood Count 3.57 M/mm3 (4.20-5.40); Red Cell Distribution Width 13.5 % (11.5-17.5); White Blood Count 12.7 K/mm3 (4.8-10.8)
[2022-07-01 09:51] LABS: Glucose,Fasting 76 mg/dl (74-100)
[2022-07-01 10:29] LABS: Glucose 1 Hour 105 mg/dL (74-100)
[2022-07-01 12:32] LABS: Iron 86 ug/dL (37-170)
[2022-07-01 12:42] LABS: Total Iron Binding Capacity 350 ug/dL (265-497)
[2022-07-01 13:09] LABS: Ferritin 35.4 ng/ml (6.24-137)
== END ==
PROVIDERS: Internal Medicine Medical Oncology; PCP Nurse Practitioner Family; Visit Provider Obstetrics & Gynecology
DX: Z34.90 Encounter for supervision of normal pregnancy, unspecified, unspecified trimester (principal); Z3A.25 25 weeks gestation of pregnancy
CPT/HCPCS: 36415; 81270; 82728; 82951; 83540; 83550; 85025

== ENCOUNTER → 2022-07-13 14:49 | Outpatient (CLI) | payer OTHER, SELFPAY ==
--- NOTE | 2022-07-13 14:49 | US_ITS ---
FINAL REPORT CLINICAL HISTORY: growth and MADDIE COMPARISON: 05/13/2022 FINDINGS: There is a single live intrauterine gestation. Presentation is vertex/cephalic. The cervix is closed and measures 3.7 cm. Placenta is anterior, grade 1. movement is noted. Heart rate documented at 136 beats per minute. MEASUREMENTS: ULTRASOUND AGE: 28 weeks 3 days. GESTATION AGE: 29 weeks 6 days. ESTIMATED WEIGHT: 1130 g GROWTH PERCENTILE: Less than 2% BPD: 7.46 cm consistent with 30 weeks 0 days. OFD: 7.31 cm consistent with 29 weeks 3 days. HC: 26.09 cm consistent with 28 weeks 3 days. AC: 23.26 cm consistent with 27 weeks 5 days. FL: 5.16 cm consistent with 27 weeks 4 days. HC/AC: 1.12 CI: 82% FL/BPD: 69% FL/AC: 22% MADDIE: 9.38 cm. This is considered low normal. Visually however, there appears to be overall decrease of amniotic fluid volume. RUQ: 0.0 cm RLQ: 2.23 CM LUQ: 3.48 CM LLQ: 3.67 CM Limited evaluation of the cord with question of 2 vessel cord. IMPRESSION: Low normal MADDIE. Possible 2 vessel cord. Recommend level 1 ultrasound. Reviewed, Interpreted and Dictated by Nasreen Olivares MD Transcribed by Mecca Hernandez Authenticated and [facility]
== END ==
PROVIDERS: PCP Nurse Practitioner Family; Visit Provider Obstetrics & Gynecology
DX: O36.60X0 Maternal care for excessive fetal growth, unspecified trimester, not applicable or unspecified (principal)
CPT/HCPCS: 76816

== ENCOUNTER → 2022-08-23 16:40 | Outpatient (CLI) | payer OTHER, SELFPAY | PROVIDERS: PCP Obstetrics & Gynecology; Visit Provider Obstetrics & Gynecology | DX: Z34.90 Encounter for supervision of normal pregnancy, unspecified, unspecified trimester (principal) | CPT/HCPCS: 86403 ==

== ENCOUNTER → 2022-08-30 14:37 | Outpatient (CLI) | payer OTHER, SELFPAY ==
--- NOTE | 2022-08-30 14:41 | US_ITS ---
FINAL REPORT CLINICAL HISTORY: chronic hypertension/ abnormal NST FINDINGS: TRANSABDOMINAL ULTRASOUND There is a single live intrauterine gestation. Presentation is cephalic. The cervix is closed and measures 3.9 cm. Placenta is anterior and grade 2-3. Cardiac activity is confirmed at 150 bpm. Fetus is active. Note is made of a 2 vessel cord. MADDIE: 12 cm MEASUREMENTS: GESTATION AGE: 36 weeks 2 days. BREATHIN/2 MOVEMENT: 2/2 TONE: 2/2 FLUID VOLUME: 2/2 BPP SCORE: 8/8 IMPRESSION: Single living IUP with an ultrasound age of 36 weeks 2 days. BPP SCORE: 8/8 MADDIE: Normal Reviewed, Interpreted and Dictated by Antonio Thornton III, MD Transcribed by Polo Gallegos Authenticated and [facility]
== END ==
PROVIDERS: PCP Nurse Practitioner Family; Visit Provider Obstetrics & Gynecology
DX: O10.919 Unspecified pre-existing hypertension complicating pregnancy, unspecified trimester (principal)
CPT/HCPCS: 76819

== ENCOUNTER 2022-09-02 15:51 | Inpatient (IN) | payer OTHER, SELFPAY ==
[2022-09-02 16:00] VITALS: BP 127/79; PULSE 85; RESP 17; TEMP 36.8; O2SAT 100
[2022-09-02 16:11] VITALS: BP 138/70; PULSE 80; RESP 17; TEMP 36.8; O2SAT 100; BMI 40.8
[2022-09-02 16:44] LABS: Coronavirus 19, PCR Not Detected (NotDetected); Influenza A, PCR Not Detected (NotDetected); Influenza B, PCR Not Detected (NotDetected); Microscopic, Urine URINE MICROSCOPIC (MICROSCOPIC)
[2022-09-02 16:49] LABS: Basophils % 0.3 % (0.1-2.0); Eosinophils # 0.1 K/mm3 (0.0-0.4); Eosinophils % 0.8 % (0.1-12.0); Hematocrit 32.5 % (37.0-47.0); Hemoglobin 10.9 g/dL (12.2-16.2); Lymphocytes % 25.3 % (10-50); Mean Corpuscular HGB Conc 33.5 g/dL (31.8-35.4); Mean Corpuscular Hemoglobin 31.9 pg (27.0-31.2); Mean Platelet Volume 7.9 fl (7.4-10.4); Monocytes # 0.7 K/mm3 (0.1-1.0); Monocytes % 5.6 % (1.7-9.3); Platelet Count 494 K/mm3 (142-424); Red Blood Count 3.42 M/mm3 (4.20-5.40); Red Cell Distribution Width 14.4 % (11.5-17.5); White Blood Count 11.8 K/mm3 (4.8-10.8)
[2022-09-02 16:57] LABS: Appearance,Urine CLEAR (Clear); Bilirubin,Urine Negative (Negative); Blood, Urine Negative (Negative); Color,Urine YELLOW (Yellow); Glucose,Urine (UA) Negative (Negative); Ketones,Urine Negative (Negative); Leukocyte Esterase,Urine TRACE (Negative); Nitrate,Urine Negative (Negative); PH,Urine 6.5 (5.0-8.5); Protein,Urine 1+ (Negative); Specific Gravity, Urine >= 1.030 (1.005-1.030); Urobilinogen,Urine 0.2 EU/dl (0.2)
[2022-09-02 17:02] LABS: Barbiturates Screen,Urine Negative ng/ml (<200); Benzodiazepines Screen,Urine Negative ng/ml (<200)
[2022-09-02 17:03] LABS: Amphetamine/Metha Screen,Urine Negative ng/ml (<1000); Cannabinoid Screen,Urine Negative ng/ml (<50)
[2022-09-02 17:04] LABS: Cocaine Screen,Urine Negative ng/ml (<300)
[2022-09-02 17:05] LABS: Methadone Screen,Urine Negative ng/ml (<300); Opiate Screen,Urine Negative ng/ml (<300)
[2022-09-02 17:06] LABS: Phencyclidine Screen,Urine Negative ng/ml (<25)
[2022-09-02 17:49] LABS: Bacteria,Urine 1+ /lpf
[2022-09-02 20:26] VITALS: BP 150/76; PULSE 82; RESP 18; TEMP 36.8; O2SAT 100
--- NOTE | 2022-09-03 07:19 | P.CONPHA_ITS ---
Pharmacy Intervention Comments: MEDICATION RECONCILIATION COMPLETED ON PATIENT USING EXTERNAL FILL HISTORY FROM PHARMACY AND LIST FROM ENVIRONMENTAL COMMUNICATIONS SPECIALIST OFFICE. -DARIO BETTSD
--- NOTE | 2022-09-03 07:19 | HMH.PHAINT1 ---
Pharmacy Intervention Comments: MEDICATION RECONCILIATION COMPLETED ON PATIENT USING EXTERNAL FILL HISTORY FROM PHARMACY AND LIST FROM PAYROLL AND BENEFITS MANAGER OFFICE. -DARIO BETTSD
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
--- NOTE | 2022-09-03 15:57 | CARE MANAGER ---
Patient has not delivered at this time. Spoke with nurse Randolph (OB) urine will be obtained on baby as well as cord screen sent for toxicology upon delivery.
[2022-09-03 15:59] VITALS: BP 143/65; PULSE 43; RESP 18; TEMP 36.7; O2SAT 99
--- NOTE | 2022-09-03 19:18 | EXP.LABOR.NO ---
Labor Note Subjective: Date: 09/03/22 Time: 19:18 Objective: NST:: Reactive Cervical Dilation:: 7 Effacement:: 90% Station: -1 Membranes: spontaneously ruptured Fetus: Monitoring?: Yes monitoring type:: Internal Assessment: Labor progressing?: No Problems: (1) 36 to 37 weeks gestation of : Category: Medical (2) Asymmetric IUGR affecting , antepartum: Category: Medical Code(s): O36.5990 - Maternal care for other known or suspected poor growth, unspecified trimester, not applicable or unspecified (3) Hypertension affecting : Category: Medical Code(s): O16.9 - Unspecified maternal hypertension, unspecified trimester (4) Tobacco use affecting , antepartum: Category: Medical Code(s): O99.330 - Smoking (tobacco) complicating , unspecified trimester (5) Maternal obesity affecting , antepartum: Category: Medical Code(s): O99.210 - Obesity complicating , unspecified trimester (6) PVC (premature ventricular contraction): Category: Medical Code(s): I49.3 - Ventricular premature depolarization (7) Bradycardia: Category: Medical Code(s): R00.1 - Bradycardia, unspecified (8) Thrombocytosis: Category: Medical Code(s): D75.839 - Thrombocytosis, unspecified (9) Failure to progress in labor: Category: Medical Code(s): O62.2 - Other uterine inertia Plan: Plan for ?: Yes Additional information:: Cervical exam has been unchanged for over 3 hours, /1. IUPC in place with adequate MVU Pitocin reached 20 units Discussed primary for failure to progress. Discussed risks, benefits, alternatives, expectations and possible complications of surgery. All questions addressed and answered. She voiced understanding of risks and possible complications. Consent form signed. Proceed with primary for failure to progress
[2022-09-03 20:39] LABS: Cord Blood PH 7.33 (7.35-7.45)
--- NOTE | 2022-09-03 21:22 | EXP.OP.NOTE ---
Date of procedure: 09/03/22 Pre-op Diagnosis:: 1. IUP at 36w6d 2. Asymmetric IUGR affecting , antepartum 3. Tobacco use affecting , antepartum 4. Hypertension affecting 5. Maternal obesity affecting , antepartum 6. Thrombocytosis 7. PVC (premature ventricular contraction) 8. Bradycardia 9. Failure to progress Post-op Diagnosis:: 1. IUP at 36w6d 2. Asymmetric IUGR affecting , antepartum 3. Tobacco use affecting , antepartum 4. Hypertension affecting 5. Maternal obesity affecting , antepartum 6. Thrombocytosis 7. PVC (premature ventricular contraction) 8. Bradycardia 9. Failure to progress Procedure performed:: Primary Low Transverse Section Surgeon:: Monica Lainez DO Family Engagement Specialist(s):: Antonio Ridley MD DIRECTOR OF SECURITIES AND REAL ESTATE:: Christopher Gregg Anesthesia: spinal Estimated blood loss (mL): 500 Clinical Note:: Ms Radha Thomas is a 31 yo at 36w6d who presented to [facility] Labor and Delivery 09/02/22 for induction of labor secondary to CHTN, maternal obesity and asymmetric IUGR. She found out she was around 20 weeks. From that point on she had good care. She was co-managed with [facility]. Last ultrasound, 08/26, demonstrated EFW 7 %ile, significant IUGR with mildly elevated S/D ratio, BPP 8/8. Delivery was recommended 36-37 weeks. She has been taking metoprolol 12.5 mg PO BID and baby Aspirin 81 mg nightly. GBS negative. She underwent induction of labor with Cervidil followed by Pitocin. She spontaneous ruptured at 2115 on 09/02/22. Pitocin was started around 0615 on 09/03/22. Internal monitors were placed. Pitocin reached 20 units. Cervical exam progressed to 7/90/-1. No cervical change after 3 hours and adequate MVU. Decision was made to proceed with primary for failure to progress. Operative findings:: 1. Live female baby (baby's name is Keisha) weighing 4 lb 11 oz, APGARs 8, 10 2. Grossly normal appearing uterus, bilateral fallopian tubes and ovaries 3. Small placenta with short umbilical cord 4. 2 vessel umbilical cord Operative note:: The risks, benefits and alternatives of the procedure were reviewed with the patient. Informed consent was obtained. Patient was taken to the operating room where epidural catheter was removed and spinal anesthesia was placed. The patient received 2 grams of Ancef preoperatively. Patient was placed in dorsal supine position with a leftward tilt. SCDs in place. Dai catheter had been placed and was draining clear urine prior to the start of the procedure. heart tones were obtained. Vagina was prepped with Betadine swabs x 3. Patient was then prepped and draped in normal sterile fashion. Allis clamp test was performed to ensure adequate anesthesia. A Pfannenstiel skin incision was made 2 cm above pubic symphysis. This was carried through to underlying layer of fascia. Fascia was incised in midline, extended laterally with Franks scissors. Superior aspect of fascial incision was grasped with two Alber clamps, elevated up, and rectus muscle dissected off bluntly and sharply with Franks scissors. The retcus muscle was then in the midline and the peritoneum was entered bluntly with a digit. Peritoneal incision was then extended superiorly and inferiorly with good visualization of the bladder. Jorge retractor was inserted. The lower uterine segment was incised in a transverse fashion. Head was delivered without difficulty. Remainder of body was delivered without difficulty. Mouth and nares were bulb suctioned. Spontaneous cry was noted. Delayed cord clamping was performed for 60 seconds. The umbilical cord was clamped and cut. The infant was handed to awaiting pediatric staff in stable condition. Dr. Britton was present. Apgars were 8(1 min), 10(5 min). Cord blood was obtained. Gentle traction on the umbilical cord and uterine fundal massage delivered the placenta. Placenta was intact. Placenta will be sent to path
[2022-09-03 21:30] VITALS: BP 155/78; PULSE 79; RESP 17; TEMP 36.7; O2SAT 97
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
--- NOTE | 2022-09-03 21:31 | EXP.ANES.I ---
[facility] Anesthesia Record Part I Anesthesia Record I Intake, IV Amount: 1,500 Estimated blood loss (mL): 500 Urine output (mL): 700 Blood Pressure: 155/81 SaO2: 99 Pulse Rate: 77 Respiratory Rate: 12 Temperature: 97.5 F Patient is:: Awake and Stable Stable to PACU at:: 21:30
[2022-09-03 21:32] VITALS: BP 155/81; PULSE 77; RESP 12; TEMP 36.4; O2SAT 99
[2022-09-03 21:40] VITALS: BP 164/81; PULSE 78; RESP 18; TEMP -17.7; TEMP 0; O2SAT 99
[2022-09-03 21:50] VITALS: BP 167/94; PULSE 77; RESP 18; TEMP -17.7; TEMP 0; O2SAT 99
[2022-09-03 22:00] VITALS: BP 157/82; PULSE 79; RESP 18; TEMP -17.7; TEMP 0; O2SAT 99
--- NOTE | 2022-09-03 22:25 | SUR.OPER ---
2031- viable infant male born at this time 2039-Thompson, RT reported cord pH of 7.33, relayed to MD Lainez, NNO *MD Lainez aware that there was not enough cord blood to obtain a purple and red top tube. This information was passed onto WILLIAM Wei 2041- MD Lainez requests 1gram of TXA to be given to patient 2045-Verified dosing w/ JVaughn Wasserman pharmD regarding TXA administration. 1 gram in 250mL bag of NS to be given over 30 minutes. This medication was mixed and verified w/ LYNN Diop. 2407- Detailed report given to WILLIAM Hurt in OB 2305- Pt brought back to room, wheels locked and bed in lowest position.
[2022-09-04 08:20] VITALS: BP 160/84; PULSE 84; RESP 16; TEMP 36.9; O2SAT 100
[2022-09-04 09:14] LABS: Basophils % 0.1 % (0.1-2.0); Eosinophils # 0.1 K/mm3 (0.0-0.4); Eosinophils % 0.8 % (0.1-12.0); Hematocrit 30.1 % (37.0-47.0); Lymphocytes # 1.7 K/mm3 (0.7-4.5); Lymphocytes % 10.7 % (10-50); Mean Corpuscular HGB Conc 33.3 g/dL (31.8-35.4); Mean Corpuscular Hemoglobin 31.9 pg (27.0-31.2); Mean Corpuscular Volume 95.8 fl (81-99); Mean Platelet Volume 7.7 fl (7.4-10.4); Monocytes # 0.5 K/mm3 (0.1-1.0); Monocytes % 3.3 % (1.7-9.3); Neutrophils # 13.8 K/mm3 (1.8-7.8); Neutrophils % 85.1 % (37.0-80.0); Platelet Count 405 K/mm3 (142-424); Red Blood Count 3.14 M/mm3 (4.20-5.40); Red Cell Distribution Width 14.5 % (11.5-17.5); White Blood Count 16.2 K/mm3 (4.8-10.8)
[2022-09-04 09:15] LABS: MANUAL DIFFERENTIAL MANUAL DIFFERENTIAL (MANUAL DIFF)
[2022-09-04 10:14] LABS: Anisocytosis 1+; Hypochromasia 1+; Lymphocytes % 14 % (10-50); Monocytes % 3 % (2-9); Neutrophils % 83 % (42-76); Platelet Estimate Normal; Total Cells Counted 100
--- NOTE | 2022-09-04 12:00 | EXP.ACUTE.PN ---
Subjective *Date: 09/04/22 *Time: 12:00 Interval history: POD # 1 s/p PLTCS Sitting comfortably in rocking chair. Pain controlled. Appropriate lochia. Formula feeding. Voiding without difficulty and passing flatus. Tolerating regular diet. Denies fever/chills, chest pain and shortness of breath. No headaches or vision changes. Admits to mild lower extremity swelling. Medical Exam Vital signs and Labs for Last 24 Hours: Vital Signs Temp Pulse Pulse Resp BP BP Pulse Ox 09/04/22 08:20 98.5 F 84 16 160/84 H 100 09/03/22 22:00 0 F L 79 18 157/82 H 99 09/03/22 21:50 0 F L 77 18 167/94 H 99 09/03/22 21:40 0 F L 78 18 164/81 H 99 09/03/22 21:30 98.0 F 79 17 155/78 H 97 09/03/22 15:59 98.1 F 43 L 18 143/65 H 99 09/03/22 21:32 97.5 F L 77 12 155/81 H Intake and Output 09/03/22 09/04/22 09/04/22 23:59 07:59 15:59 Intake Total 1500 / 1500 100 / 100 Output Total 2700 / 2700 Balance 1500 / 1500 -2600 / -2600 Intake: Intake, Total IV Amount 1500 / 1500 100 / 100 Cefazolin Sodium 2 gm In 0.9 % 100 / 100 Sodium Chloride 100 ml @ 200 mls/hr IV Q8H [facility] Rx#:[id number] Output: Output, Urine Amount (Catheter) 2700 / 2700 Dai 2700 / 2700 Laboratory Results - last 24 hr 09/03/22 20:37: Cord ABG pH 7.33 L 09/04/22 08:54: WBC 16.2 H D, RBC 3.14 L, Hgb 10.0 L, Hct 30.1 L, MCV 95.8, MCH 31.9 H, MCHC 33.3, RDW 14.5, Plt Count 405, MPV 7.7, Neut % (Auto) 85.1 H, Lymph % (Auto) 10.7, [place] % (Auto) 3.3, Eos % (Auto) 0.8, Baso % (Auto) 0.1, Neut # (Auto) 13.8 H, Lymph # (Auto) 1.7, [place] # (Auto) 0.5, Eos # (Auto) 0.1, Baso # (Auto) 0.0, Total Counted 100, Neutrophils % (Manual) 83 H, Lymphocytes % (Manual) 14, Monocytes % (Manual) 3, Platelet Estimate Normal, Hypochromasia 1+, Anisocytosis 1+ I & O for Labs for Last 24 Hours: Intake & Output 09/01/22 09/02/22 09/03/22 09/04/22 23:59 23:59 23:59 23:59 Intake Total 1500 / 1500 100 / 100 Output Total 2700 / 2700 Balance 1500 / 1500 -2600 / -2600 Weight 223 lb Head: Present atraumatic and normocephalic ENT: Present normal exam Neck: Present full ROM Respiratory: Present CTA bilaterally and normal respiratory effort Cardiac: Present Reg Rate and Rhythm GI: Present soft and normal bowel sounds; Absent distention or tenderness Comments:: Uterine fundus firm and below umbilicus, pfannenstiel incision clean/dry/intact, steri strips in place Rectal (female): Present deferred (female): Present deferred Extremities: Present full ROM and edema (+1 bilateral ankle and pedal edema); Absent calf tenderness Neuro: Present alert, awake, oriented x 3 and moves all extremities Assessment and Plan *Assessment and plan (1) 36 to 37 weeks gestation of : Status: Acute Category: Medical (2) Asymmetric IUGR affecting , antepartum: Status: Acute Category: Medical Code(s): O36.5990 - Maternal care for other known or suspected poor growth, unspecified trimester, not applicable or unspecified (3) Thrombocytosis: Status: Acute Category: Medical Code(s): D75.839 - Thrombocytosis, unspecified (4) Tobacco use affecting , antepartum: Status: Acute Category: Medical Code(s): O99.330 - Smoking (tobacco) complicating , unspecified trimester (5) PVC (premature ventricular contraction): Status: Acute Category: Medical Code(s): I49.3 - Ventricular premature depolarization (6) Hypertension affecting : Status: Acute Category: Medical Code(s): O16.9 - Unspecified maternal hypertension, unspecified trimester (7) Maternal obesity affecting , antepartum: Status: Acute Category: Medical Code(s): O99.210 - Obesity complicating , unspecified trimester (8) Failure to progress in labor: Status: Acute Category: Medi
[2022-09-04 19:58] VITALS: BP 148/73; PULSE 86; RESP 18; TEMP 36.9; O2SAT 99
[2022-09-04 23:54] VITALS: BP 144/77; PULSE 84; RESP 18; TEMP 36.9
[2022-09-05 04:47] VITALS: BP 130/69; PULSE 83; RESP 17; TEMP 36.9
--- NOTE | 2022-09-05 08:23 | EXP.ACUTE.PN ---
Subjective *Date: 09/05/22 *Time: 08:23 Interval history: POD # 2 s/p PLTCS Feeling well. Pain controlled. Light lochia. She is formula feeding. Voiding without difficulty and passing flatus. Tolerating regular diet. Denies headaches and vision changes. Admits to bilateral lower extremity swelling. No calf tenderness. Ambulating well ad jim. Medical Exam Vital signs and Labs for Last 24 Hours: Vital Signs Temp Pulse Resp BP Pulse Ox 09/05/22 04:47 98.4 F 83 17 130/69 09/04/22 23:54 98.5 F 84 18 144/77 H 09/04/22 19:58 98.5 F 86 18 148/73 H 99 Laboratory Results - last 24 hr 09/04/22 08:54: WBC 16.2 H D, RBC 3.14 L, Hgb 10.0 L, Hct 30.1 L, MCV 95.8, MCH 31.9 H, MCHC 33.3, RDW 14.5, Plt Count 405, MPV 7.7, Neut % (Auto) 85.1 H, Lymph % (Auto) 10.7, [place] % (Auto) 3.3, Eos % (Auto) 0.8, Baso % (Auto) 0.1, Neut # (Auto) 13.8 H, Lymph # (Auto) 1.7, [place] # (Auto) 0.5, Eos # (Auto) 0.1, Baso # (Auto) 0.0, Total Counted 100, Neutrophils % (Manual) 83 H, Lymphocytes % (Manual) 14, Monocytes % (Manual) 3, Platelet Estimate Normal, Hypochromasia 1+, Anisocytosis 1+ I & O for Labs for Last 24 Hours: Intake & Output 09/02/22 09/03/22 09/04/22 09/05/22 23:59 23:59 23:59 23:59 Intake Total 1500 / 1500 100 / 100 Output Total 2700 / 2700 Balance 1500 / 1500 -2600 / -2600 Weight 223 lb Head: Present atraumatic and normocephalic ENT: Present mucous membranes moist Neck: Present full ROM Respiratory: Present CTA bilaterally and normal respiratory effort Cardiac: Present Reg Rate and Rhythm GI: Present soft and normal bowel sounds; Absent distention or tenderness Comments:: Uterine fundus firm and below umbilicus, pfannenstiel incision clean/dry/intact Rectal (female): Present deferred (female): Present deferred Extremities: Present full ROM and edema (+3 bilateral lower extremity edema); Absent calf tenderness Neuro: Present alert, awake, oriented x 3 and moves all extremities Assessment and Plan *Assessment and plan (1) S/P : Status: Acute Category: Surgical Code(s): Z98.891 - History of uterine scar from previous surgery (2) 36 to 37 weeks gestation of : Status: Acute Category: Medical (3) Asymmetric IUGR affecting , antepartum: Status: Acute Category: Medical Code(s): O36.5990 - Maternal care for other known or suspected poor growth, unspecified trimester, not applicable or unspecified (4) Tobacco use affecting , antepartum: Status: Acute Category: Medical Code(s): O99.330 - Smoking (tobacco) complicating , unspecified trimester (5) Hypertension affecting : Status: Acute Category: Medical Code(s): O16.9 - Unspecified maternal hypertension, unspecified trimester (6) Maternal obesity affecting , antepartum: Status: Acute Category: Medical Code(s): O99.210 - Obesity complicating , unspecified trimester (7) Failure to progress in labor: Status: Acute Category: Medical Code(s): O62.2 - Other uterine inertia (8) Acute blood loss anemia: Status: Acute Category: Medical Code(s): D62 - Acute posthemorrhagic anemia Plan Continue routine care Encouraged increased ambulation Plan d/c home POD # 3
[2022-09-05 20:02] VITALS: BP 170/98; PULSE 85; RESP 18; TEMP 37; O2SAT 99
[2022-09-05 21:19] VITALS: BP 155/67; PULSE 45
[2022-09-05 23:48] VITALS: BP 127/62; PULSE 48; RESP 18; TEMP 36.9; O2SAT 98
[2022-09-06 04:01] VITALS: BP 152/65; PULSE 71; RESP 18; TEMP 36.9; O2SAT 100
--- NOTE | 2022-09-06 07:10 | EXP.DC.SUM ---
General Admission date:: 09/02/22 Discharge date: 09/06/22 HPI HPI HPI: POD# 3 s/p PLTCS Feeling well. Pain controlled. Light lochia. She is formula feeding. Voiding without difficulty and passing flatus. Tolerating regular diet. Denies fever/chills, chest pain and shortness of breath. Denies headaches and vision changes. Admits to lower extremity swelling. Ambulating well ad jim. Hospital Course Hospital Course Hospital Course: Ms Radha Thomas is a 31 yo at 36w6d who presented to [facility] Labor and Delivery 09/02/22 for induction of labor secondary to CHTN, maternal obesity and asymmetric IUGR. She found out she was around 20 weeks. From that point on she had good care. She was co-managed with [facility]. Last ultrasound, 08/26, demonstrated EFW 7 %ile, significant IUGR with mildly elevated S/D ratio, BPP 8/8. Delivery was recommended 36-37 weeks. She has been taking metoprolol 12.5 mg PO BID and baby Aspirin 81 mg nightly. GBS negative. She underwent induction of labor with Cervidil followed by Pitocin. She spontaneous ruptured at 2115 on 09/02/22. Pitocin was started around 0615 on 09/03/22. Internal monitors were placed. Pitocin reached 20 units. Cervical exam progressed to 7/90/-1. No cervical change after 3 hours and adequate MVU. Decision was made to proceed with primary for failure to progress. She underwent primary on 09/03/22. She delivered a live female baby (baby's name is Keisha) weighing 4 lb 11 oz. APGARs 8, 10. EBL 500. She did well postoperatively/. Pain controlled. Formula feeding. Light lochia. She was voiding without difficulty and passing flatus. Tolerating regular diet. BP mild range, normotensive and elevated at times consistent with chronic hypertension. Remainder of vitals within normal limits, afebrile. No headache or vision changes. Heart regular rate and rhythm. Lungs clear to auscultation. Abdomen soft, nontender. She had +3 bilateral lower extremity edema. No calf tenderness to palpation. She received Venofer 200 mg IV x 1 dose on POD # 1 for acute blood loss anemia. Normal hospital course. She was discharged to home on POD # 3. Exam Data for Last 24 hours Vital signs and Labs for Last 24 Hours: Temp Pulse Resp BP Pulse Ox 98.4 F 71 18 152/65 H 100 09/06/22 04:01 09/06/22 04:01 09/06/22 04:01 09/06/22 04:01 09/06/22 04:01 Laboratory Results - last 24 hr 09/02/22 16:35: Crossmatch ([facility]) See Detail I & O for Last 24 hours: Intake & Output 09/03/22 09/04/22 09/05/22 09/06/22 23:59 23:59 23:59 23:59 Intake Total 1500 / 1500 100 / 100 Output Total 2700 / 2700 Balance 1500 / 1500 -2600 / -2600 Constitutional Constitutional: no acute distress *Routine HEENT Exam Head: Present normocephalic and atraumatic Eye: Absent conjunctivae pink ENT: Present mucous membranes moist *Routine Neck Exam Neck: Present full ROM *Routine Respiratory Exam Respiratory: Present CTA bilaterally and normal respiratory effort *Routine Cardiovascular Exam Cardiovascular: Present RRR *Routine Abdominal Exam Abdominal: Present soft and normoactive bowel sounds; Absent tenderness Comments: Pfannenstiel incision clean/dry/intact *Routine Rectal Exam Patient deferred: visual exam *Routine Exam Patient deferred: external exam *Routine Extremities Exam Extremities: Present edema (+3 bilateral lower extremity edema) and full ROM; Absent calf tenderness *Routine Neurological Exam Neurological: Present alert, oriented X3 and moving all extremities Routine Psychiatric Exam Psychiatric: Present normal affect and cooperative Results Data Completed and Pending Labs on day of discharge: Labs from last 24 hours 09/02/22 16:35 Crossmatch ([facility]) See Detail DS: Diagnosis Discharge Diagnosis (1) S/P : Status: Acute (2) 36 to 37 weeks gestation of : Status: Acute (3) Asymmetric IUGR affecting , ante
[2022-09-06 08:00] VITALS: BP 148/88; PULSE 76; RESP 18; TEMP 36.7; O2SAT 100
--- NOTE | 2022-09-06 13:47 | CARE MANAGER ---
Addendum entered by Tomasa Taylor 09/09/22 13:02: cord screen is NEGATIVE. Original Note: Nurse Marysol Dumont called this am stating that patient is fine and doing well. She also states that baby is fine as well, thus no need for CM to see this patient.
[2022-09-06 13:52] VITALS: BP 157/82; PULSE 79; TEMP 36.6
--- NOTE | 2022-09-06 13:52 | P.PNANES_ITS ---
[facility] Anesthesia Record Part II Anesthesia Record Part II Discharge Time: 22:00 (09/03/22) Destination: Obstetric PACU nurse assessment reviewed?: Yes Patient Condition:: Good Anesthesia Complications:: None Swallowing reflex intact?: Yes Cyanosis?: No Blood Pressure: 157/82 Pulse Rate: 79 Temperature: 98 F Mental Status: Alert & Oriented Pain level:: 0 Nausea and/or vomitting:: None Intake, IV Amount: 0
== END 2022-09-06 10:00 | disposition home or self-care (01) | DRG 787 ==
PROVIDERS: Admitting Provider Obstetrics & Gynecology; PCP Nurse Practitioner Family; Visit Provider Obstetrics & Gynecology
PROC: 10D00Z1 Extraction of Products of Conception, Low, Open Approach (ICD-10-PCS; principal; 2022-09-03 20:00)
DX: O16.4 Unspecified maternal hypertension, complicating childbirth (principal); D62 Acute posthemorrhagic anemia; O36.5930 Maternal care for other known or suspected poor fetal growth, third trimester, not applicable or unspecified; O62.0 Primary inadequate contractions; Z3A.36 36 weeks gestation of pregnancy; Z37.0 Single live birth; O99.892 Other specified diseases and conditions complicating childbirth; R00.1 Bradycardia, unspecified; O99.02 Anemia complicating childbirth; O69.3XX0 Labor and delivery complicated by short cord, not applicable or unspecified; O99.334 Smoking (tobacco) complicating childbirth; F17.210 Nicotine dependence, cigarettes, uncomplicated; O90.81 Anemia of the puerperium
CPT/HCPCS: 59514; 36415; 59025; 76819; 80305; 81001; 82800; 85007; 85025; 86850; 87636; 88307; 94761; C1758; C9803; G0283; J0690; J1756; J2405; U0003; U0005

== ENCOUNTER 2022-09-07 10:18 | Inpatient (IN) | payer OTHER, SELFPAY ==
[2022-09-07] VITALS (31 sets, daily range): BP systolic 122–200; BP diastolic 63–106; PULSE 34–97; RESP 17–18; TEMP 36.3–36.8; O2SAT 97–100; BMI 40.2
--- NOTE | 2022-09-07 10:25 | PC.NURSE ---
DR HANDLEY AT BEDSIDE
--- NOTE | 2022-09-07 10:30 | PC.NURSE ---
DR HANDLEY SPEAKING WITH DR CHAHAL
--- NOTE | 2022-09-07 10:32 | PC.NURSE ---
CARDIOLOGY PAGED AT THIS TIME
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
--- NOTE | 2022-09-07 10:39 | ECG_ITS ---
APPROVED REPORT Exam: Resting ECG HR:89 bpm ECG Measurements Heart Rate 89 AXES NC 137 P 44 QRSd 106 QRS 46 QT 381 T 66 QTc 427 Conclusion SINUS RHYTHM WITH FREQUENT VENTRICULAR PREMATURE COMPLEXES IN A BIGEMINAL PATTERN POSSIBLE LEFT ATRIAL ENLARGEMENT [-0.1mV P-WAVE IN V1/V2] ABNORMAL RHYTHM ECG UNCONFIRMED REPORT Electronically signed by : Waldemar Patricia MD 09/07/2022 21:19:37
--- NOTE | 2022-09-07 10:39 | PC.NURSE ---
REPORT GIVEN TO Marycruz LU RN TO ASSUME CARE
--- NOTE | 2022-09-07 10:41 | PC.NURSE ---
CARE MANAGEMENT NOTIFIED OF ADMISSION
--- NOTE | 2022-09-07 10:50 | PC.NURSE ---
4g Bolus of magnesium sulfate started at this time. RN remains at bedside. B/P cuff in place
[2022-09-07 10:56] LABS: Basophils % 0.3 % (0.1-2.0); Eosinophils # 0.3 K/mm3 (0.0-0.4); Eosinophils % 1.8 % (0.1-12.0); Hematocrit 35.4 % (37.0-47.0); Hemoglobin 11.6 g/dL (12.2-16.2); Lymphocytes # 2.4 K/mm3 (0.7-4.5); Lymphocytes % 15.1 % (10-50); Mean Corpuscular HGB Conc 32.8 g/dL (31.8-35.4); Mean Corpuscular Hemoglobin 31.3 pg (27.0-31.2); Mean Corpuscular Volume 95.5 fl (81-99); Mean Platelet Volume 7.5 fl (7.4-10.4); Monocytes # 0.5 K/mm3 (0.1-1.0); Monocytes % 2.7 % (1.7-9.3); Neutrophils % 80.2 % (37.0-80.0); Platelet Count 663 K/mm3 (142-424); Red Blood Count 3.71 M/mm3 (4.20-5.40); Red Cell Distribution Width 14.3 % (11.5-17.5); White Blood Count 16.2 K/mm3 (4.8-10.8)
[2022-09-07 10:59] LABS: MANUAL DIFFERENTIAL MANUAL DIFFERENTIAL (MANUAL DIFF)
[2022-09-07 11:02] LABS: Chloride 102 mmol/L (98-107); Potassium 3.7 mmoL/L (3.5-5.1); Sodium 140 mmol/L (136-145)
[2022-09-07 11:05] LABS: Alanine Aminotransferase 22 U/L (12-78); Albumin Level 3.7 g/dl (3.5-5.0); Alkaline Phosphatase 89 U/L (38-126); Anion Gap 18.7 mEq/L (5-15); Aspartate Amino Transferase 31 U/L (14-36); Blood Urea Nitrogen 13 mg/dl (7-17); Calcium 9.9 mg/dl (8.4-10.2); Carbon Dioxide 23 mmol/L (22.0-30.0); Creatinine Clearance Estimated 144 mL/min (50-200); Estimated Glomerular Filt Rate 74 ml/min (>60); GFR (African American) 89 ML/MIN (>60); Globulin 3.6 g/dL (1.3-3.2); Glucose 110 mg/dl (74-100); Total Protein,Serum 7.3 g/dl (6.3-8.2)
[2022-09-07 11:06] LABS: Magnesium 1.6 mg/dl (1.6-2.3)
[2022-09-07 11:09] LABS: Lymphocytes % 17 % (10-50); Monocytes % 6 % (2-9); Neutrophils % 77 % (42-76); Total Cells Counted 100
[2022-09-07 11:10] LABS: Bilirubin,Total 0.1 mg/dl (0.2-1.3); Platelet Estimate Moderate Increase; RBC Morphology Normal
--- NOTE | 2022-09-07 11:15 | PC.NURSE ---
2g mag started at this time
[2022-09-07 11:47] LABS: Basophils % 0.3 % (0.1-2.0); Eosinophils # 0.2 K/mm3 (0.0-0.4); Eosinophils % 1.5 % (0.1-12.0); Hematocrit 35.2 % (37.0-47.0); Hemoglobin 11.6 g/dL (12.2-16.2); Lymphocytes # 2.5 K/mm3 (0.7-4.5); Lymphocytes % 15.1 % (10-50); Mean Corpuscular HGB Conc 32.9 g/dL (31.8-35.4); Mean Corpuscular Hemoglobin 31.9 pg (27.0-31.2); Mean Platelet Volume 7.7 fl (7.4-10.4); Monocytes # 0.6 K/mm3 (0.1-1.0); Monocytes % 3.4 % (1.7-9.3); Neutrophils # 12.9 K/mm3 (1.8-7.8); Neutrophils % 79.7 % (37.0-80.0); Platelet Count 661 K/mm3 (142-424); Red Blood Count 3.63 M/mm3 (4.20-5.40); Red Cell Distribution Width 14.3 % (11.5-17.5); White Blood Count 16.2 K/mm3 (4.8-10.8)
[2022-09-07 11:59] LABS: Coronavirus 19, PCR Not Detected (NotDetected); Influenza A, PCR Not Detected (NotDetected); Influenza B, PCR Not Detected (NotDetected)
--- NOTE | 2022-09-07 12:01 | PC.NURSE ---
BLE DTR's +2, clonus absent
--- NOTE | 2022-09-07 12:26 | CT_ITS ---
FINAL REPORT CLINICAL HISTORY: headache FINDINGS: Axial images of the head were obtained without contrast. Coronal reformatted images were also obtained.This study was performed with techniques to keep radiation doses as low as reasonably achievable (ALARA). Individualized dose reduction techniques using automated exposure control or adjustment of mA and/or kV according to the patient''s size were employed. There is no evidence of intracranial hemorrhage or mass. The ventricular size is within normal limits. There is no evidence of shift of the midline structures. No abnormal extra axial fluid collection is identified. No skull abnormality is seen on the bone window images. IMPRESSION: No acute intracranial abnormality. Reviewed, Interpreted and Dictated by Antonio Thornton III, MD Transcribed by Charleen Hopkins Authenticated and [facility]
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
--- NOTE | 2022-09-07 12:34 | PC.NURSE ---
pt off the unit for CT scan
[2022-09-07 12:38] LABS: INR 0.85 (0.9-1.1); Prothrombin Time 9.3 seconds (10.1-12.5)
[2022-09-07 12:41] LABS: Fibrinogen 827 mg/dL (229.9-363.5)
--- NOTE | 2022-09-07 12:46 | PC.NURSE ---
Dr. Lainez called for update on pt. report given, telephone order given for a urine culture. Orders v/r
--- NOTE | 2022-09-07 13:00 | PC.NURSE ---
Radiology at the bedside for echo
--- NOTE | 2022-09-07 13:02 | PC.NURSE ---
Bhavani stevenson at the bedside speaking with pt for anesthesia consult for possible spinal headache
[2022-09-07 13:06] LABS: Alanine Aminotransferase 22 U/L (12-78); Anion Gap 21.7 mEq/L (5-15); Aspartate Amino Transferase 34 U/L (14-36); Blood Urea Nitrogen 13 mg/dl (7-17); Calcium 9.5 mg/dl (8.4-10.2); Carbon Dioxide 23 mmol/L (22.0-30.0); Chloride 100 mmol/L (98-107); Creatinine Clearance Estimated 162 mL/min (50-200); Estimated Glomerular Filt Rate 84 ml/min (>60); GFR (African American) 102 ML/MIN (>60); Glucose 111 mg/dl (74-100); Potassium 3.7 mmoL/L (3.5-5.1); Sodium 141 mmol/L (136-145); Uric Acid 7.2 mg/dl (2.5-6.2)
--- NOTE | 2022-09-07 13:25 | ECG_ITS ---
APPROVED REPORT Exam: Resting ECG HR:79 bpm ECG Measurements Heart Rate 79 AXES NJ 143 P 44 QRSd 101 QRS 55 QT 397 T 56 QTc 431 Conclusion SINUS RHYTHM WITH FREQUENT VENTRICULAR PREMATURE COMPLEXES IN A BIGEMINAL PATTERN POSSIBLE RIGHT VENTRICULAR CONDUCTION DELAY [RSR (QR) IN V1/V2] ABNORMAL RHYTHM ECG UNCONFIRMED REPORT Electronically signed by : Waldemar Patricia MD 09/07/2022 21:19:18
--- NOTE | 2022-09-07 13:35 | PC.NURSE ---
Dr. Waters at the bedside speaking with pt. Verbal orders given t for 4mg Morphine IV for pain, if pt is still in pain in 20 mins repeat 4mg dose, then if in pain repeat 4mg dose again up to 12 mg total, call MD if requiring more. Orders given for Oxycodone 5mg po q3h PRN for pain, call MD if exceeding 30mg
[2022-09-07 14:24] LABS: Magnesium 1.6 mg/dl (1.6-2.3)
[2022-09-07 14:42] LABS: Microscopic, Urine URINE MICROSCOPIC (MICROSCOPIC)
[2022-09-07 14:45] LABS: Troponin I < 0.01 ng/ml (0.00-0.034)
[2022-09-07 14:45] LABS: Appearance,Urine CLEAR (Clear); Bilirubin,Urine Negative (Negative); Blood, Urine 2+ (Negative); Color,Urine YELLOW (Yellow); Glucose,Urine (UA) Negative (Negative); Ketones,Urine Negative (Negative); Leukocyte Esterase,Urine Negative (Negative); Nitrate,Urine Negative (Negative); Protein,Urine Negative (Negative); Specific Gravity, Urine 1.015 (1.005-1.030); Urobilinogen,Urine 0.2 EU/dl (0.2)
[2022-09-07 15:03] LABS: WBC,Urine Occasional #/hpf (0-3)
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
--- NOTE | 2022-09-07 16:35 | PC.NURSE ---
Critical Fibrenogen 827 called from lab by [facility]. Pts name and verified x2
--- NOTE | 2022-09-07 16:42 | PC.NURSE ---
Pt is asleep in the bed at this time. BLT lungs CTA, Bowel sounds present in all 4 quadrants. BLE reflexes +2 clonus absent. Pt is on RA, IV patent and infusing well. Pt voiding per bedside commode. Abdomen soft and nontender. BLE +1 pitting edema. Pt denies headache, N/V , or pain at this time
[2022-09-07 17:01] LABS: Magnesium 5.5 mg/dl (1.6-2.3)
--- NOTE | 2022-09-07 20:28 | PC.NURSE ---
Medicated with Morphine 4mg IV for severe headache pain.
--- NOTE | 2022-09-07 21:13 | PC.NURSE ---
Assessment complete. The only issue pt has is her ongoing headache. All other body systems wnl. Pt remains on mag therapy and is using bsc to void.
--- NOTE | 2022-09-07 22:42 | PC.NURSE ---
Pt currently asleep. Sig other remains at bs. No distress noted.
[2022-09-08] VITALS (21 sets, daily range): BP systolic 126–172; BP diastolic 60–87; PULSE 56–80; RESP 16–18; TEMP 36.4–36.8; O2SAT 99–100
--- NOTE | 2022-09-08 00:16 | PC.NURSE ---
Pt now awake. Resting w/o complaints. Denies any needs at this time.
--- NOTE | 2022-09-08 02:10 | PC.NURSE ---
Pt rang out for more Morphine, states that she doesn't know why it just wont go away. States Morphine is the only thing that has helped and that's bc it makes her want to sleep. Reports headache and neck pain / pressure is worse with lying flat.
--- NOTE | 2022-09-08 05:47 | PC.NURSE ---
Pt given ice pack for neck in attempt to help with pain. Also medicated with Tylenol 1000mg PO and Oxycodone 5mg PO. Scds also applied.
--- NOTE | 2022-09-08 07:22 | PC.NURSE ---
Report to WILLIAM Smith.
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
--- NOTE | 2022-09-08 10:25 | EXP.CARD.PN ---
Subjective Subjective Date: 09/08/22 Time: 10:00 Principal diagnosis: htn, PVCs Interval history: This is a 31-year-old white female who presented to the emergency department headache. She was found to have malignant hypertension. The patient had previously just been discharged from the hospital on 09/06 following a delivery on 09/03. The patient was treated with IV Lasix yesterday for volume overload and started on oral diltiazem for PVCs coming from the right ventricular outflow tract. This morning her blood pressure has improved and has been running in the 120s to 140s systolic. She states that her headache has resolved. Her lower extremity edema has significantly improved as well. She denies any chest pain or pressure. She denies any shortness of breath. She denies any fever, chills, nausea, vomiting, diarrhea, PND or orthopnea. Exam Data for Last 24 hours Vital signs and Labs for Last 24 Hours: Temp Pulse Resp BP Pulse Ox 98.2 F 78 16 127/85 99 09/08/22 09:20 09/08/22 09:20 09/08/22 09:20 09/08/22 09:20 09/08/22 09:20 Laboratory Results - last 24 hr 09/07/22 10:36: SARS-CoV-2 (PCR) Not detected, Influenza A Untype (PCR) Not detected, Influenza Type B (PCR) Not detected 09/07/22 10:45: WBC 16.2 H, RBC 3.71 L, Hgb 11.6 L, Hct 35.4 L, MCV 95.5, MCH 31.3 H, MCHC 32.8, RDW 14.3, Plt Count 663 H D, MPV 7.5, Neut % (Auto) 80.2 H, Lymph % (Auto) 15.1, [place] % (Auto) 2.7, Eos % (Auto) 1.8, Baso % (Auto) 0.3, Neut # (Auto) 13.0 H, Lymph # (Auto) 2.4, [place] # (Auto) 0.5, Eos # (Auto) 0.3, Baso # (Auto) 0.0, Total Counted 100, Neutrophils % (Manual) 77 H, Lymphocytes % (Manual) 17, Monocytes % (Manual) 6, Platelet Estimate Moderate increase, RBC Morphology Normal 09/07/22 10:45: Sodium 140, Potassium 3.7, Chloride 102, Carbon Dioxide 23, Anion Gap 18.7 H, BUN 13, Creatinine 0.90, Estimated Creat Clear 144, Estimated GFR 74, Est GFR ( Amer) 89, Glucose 110 H, Calcium 9.9, Magnesium 1.6, Total Bilirubin 0.1 L, AST 31, ALT 22, Alkaline Phosphatase 89, Total Protein 7.3, Albumin 3.7, Globulin 3.6 H, Albumin/Globulin Ratio 1.0 L, TSH 1.50 09/07/22 10:45: WBC 16.2 H, RBC 3.63 L, Hgb 11.6 L, Hct 35.2 L, MCV 97.0, MCH 31.9 H, MCHC 32.9, RDW 14.3, Plt Count 661 H, MPV 7.7, Neut % (Auto) 79.7, Lymph % (Auto) 15.1, [place] % (Auto) 3.4, Eos % (Auto) 1.5, Baso % (Auto) 0.3, Neut # (Auto) 12.9 H, Lymph # (Auto) 2.5, [place] # (Auto) 0.6, Eos # (Auto) 0.2, Baso # (Auto) 0.0 09/07/22 10:45: PT 9.3 L, INR 0.85 L, APTT 28.0, Fibrinogen 827 H 09/07/22 10:45: D-Dimer 1.70 H, Sodium 141, Potassium 3.7, Chloride 100, Carbon Dioxide 23, Anion Gap 21.7 H, BUN 13, Creatinine 0.80, Estimated Creat Clear 162, Estimated GFR 84, Est GFR ( Amer) 102, Glucose 111 H, Uric Acid 7.2 H, Calcium 9.5, AST 34, ALT 22 09/07/22 10:45: Magnesium 1.6, Troponin I < 0.01 09/07/22 13:52: Urine Color Yellow, Urine Appearance Clear, Urine pH 7.0, Ur Specific Worth 1.015, Urine Protein Negative, Urine Glucose (UA) Negative, Urine Ketones Negative, Urine Blood 2+, Urine Nitrate Negative, Urine Bilirubin Negative, Urine Urobilinogen 0.2, Ur Leukocyte Esterase Negative, Urine RBC 5-10, Urine WBC Occasional, Ur Squamous Epith Cells 5-10, Urine Bacteria None 09/07/22 16:10: Magnesium 5.5 H D I & O for Last 24 hours: Intake & Output 09/05/22 09/06/22 09/07/22 09/08/22 23:59 23:59 23:59 23:59 Intake Total 2320 / 2320 Output Total 8500 / 8500 Balance -8500 / -8500 2320 / 2320 Weight 220 lb Constitutional Constitutional: no acute distress and morbidly obese *Routine HEENT Exam Head: Present normocephalic and atraumatic ENT: Present mucous membranes moist *Routine Neck Exam Neck: Present supple, full ROM and normal carotid upstroke; Absent JVD, carotid bruit or lymphadenopathy *Routine Respiratory Exam Respiratory: Present CTA bilaterally, normal respiratory effort, able to speak in complete sentences and symmetric chest movement *Routine Cardiovascular Exam
[2022-09-08 10:43] LABS: Magnesium 7.3 mg/dl (1.6-2.3)
--- NOTE | 2022-09-08 11:54 | EXP.ACUTE.PN ---
Subjective *Date: 09/08/22 *Time: 11:54 Interval history: Patient resting comfortably in bed at 45 degree incline. She states her headache is currently 0/10 in this position after receiving medication. However, if she gets up her headache comes back. She has had intermittent relief of headache with morphine. She reports head pain radiates down her neck to her back when the pain is present. She denies vision changes. No abdominal pain. BP has been stable and normotensive/mild range. She denies shortness of breath and chest pain. She admits to lower extremity swelling that is improving. She is voiding without difficulty. She is currently receiving mag sulfate for seizure prophylaxis. Medical Exam Vital signs and Labs for Last 24 Hours: Vital Signs Temp Pulse Pulse Resp BP Pulse Ox 09/08/22 11:38 60 16 136/79 09/08/22 07:30 56 L 100 09/08/22 08:00 62 133/60 09/08/22 07:15 98.2 F 56 L 16 156/87 H 99 09/08/22 09:20 98.2 F 78 16 127/85 99 09/08/22 08:00 70 09/08/22 04:00 70 09/08/22 06:30 80 09/07/22 20:00 80 09/08/22 04:00 70 09/08/22 00:00 80 09/07/22 20:00 80 09/08/22 04:20 65 138/79 09/08/22 03:20 60 143/75 H 09/08/22 02:41 58 L 132/63 09/08/22 01:33 64 143/66 H 09/08/22 00:20 74 126/65 09/08/22 00:13 97.6 F 18 09/07/22 23:20 63 150/72 H 09/07/22 22:20 65 123/76 09/07/22 21:20 70 128/72 09/07/22 20:04 71 122/82 09/07/22 18:00 45 L 154/70 H 09/07/22 18:45 40 L 122/90 09/07/22 16:00 90 09/07/22 14:16 80 09/07/22 17:30 42 L 143/63 H 09/07/22 17:00 43 L 142/88 H 09/07/22 16:30 40 L 154/68 H 09/07/22 13:00 72 141/94 H 09/07/22 14:45 43 L 144/82 H 09/07/22 14:10 34 L 156/84 H 09/07/22 13:45 46 L 158/102 H 09/07/22 13:20 38 L 179/92 H 09/07/22 13:05 42 L 156/94 H 09/07/22 12:50 41 L 130/80 09/07/22 12:24 97 H 158/82 H 09/07/22 12:00 38 L 177/93 H 09/07/22 12:00 40 L Intake and Output 09/07/22 09/08/22 09/08/22 23:59 07:59 15:59 Intake Total 2320 / 2320 Output Total 3600 / 8500 Balance -3600 / -8500 2320 / 2320 Intake: Intake, Other Amount 2320 / 2320 Output: Output, Urine Amount 3600 / 8500 Laboratory Results - last 24 hr 09/07/22 10:36: SARS-CoV-2 (PCR) Not detected, Influenza A Untype (PCR) Not detected, Influenza Type B (PCR) Not detected 09/07/22 10:45: PT 9.3 L, INR 0.85 L, APTT 28.0, Fibrinogen 827 H 09/07/22 10:45: D-Dimer 1.70 H, Sodium 141, Potassium 3.7, Chloride 100, Carbon Dioxide 23, Anion Gap 21.7 H, BUN 13, Creatinine 0.80, Estimated Creat Clear 162, Estimated GFR 84, Est GFR ( Amer) 102, Glucose 111 H, Uric Acid 7.2 H, Calcium 9.5, AST 34, ALT 22 09/07/22 10:45: Magnesium 1.6, Troponin I < 0.01 09/07/22 13:52: Urine Color Yellow, Urine Appearance Clear, Urine pH 7.0, Ur Specific [place] 1.015, Urine Protein Negative, Urine Glucose (UA) Negative, Urine Ketones Negative, Urine Blood 2+, Urine Nitrate Negative, Urine Bilirubin Negative, Urine Urobilinogen 0.2, Ur Leukocyte Esterase Negative, Urine RBC 5-10, Urine WBC Occasional, Ur Squamous Epith Cells 5-10, Urine Bacteria None 09/07/22 16:10: Magnesium 5.5 H D 09/08/22 09:57: Magnesium 7.3 H D I & O for Labs for Last 24 Hours: Intake & Output 09/05/22 09/06/22 09/07/22 09/08/22 23:59 23:59 23:59 23:59 Intake Total 2320 / 2320 Output Total 8500 / 8500 Balance -8500 / -8500 2320 / 2320 Weight 220 lb Constitutional: Present no acute distress Head: Present atraumatic and normocephalic Neck: Present normal inspection Respiratory: Present CTA bilaterally and normal respiratory effort Cardiac: Present Reg Rate and Rhythm GI: Present soft and normal bowel sounds; Absent distention or tenderness Comments:: Pfannenstiel incision clean/dry/intact with steri
--- NOTE | 2022-09-08 12:05 | PC.NURSE ---
1200- 60MG TORADOL IV GIVEN PER DR CHAHAL, OKAYED WITH NEGAR LE IN CARDIOLOGY. MAGNESIUM INFUSION ALSO STOPPED AT THIS TIME PER DR CHAHAL.
--- NOTE | 2022-09-08 13:42 | PC.NURSE ---
PT STATES SHE IS FEELING LESS SLUGGISH AND MORE TO HERSELF, REPORTS HEADACHE HAS IMPROVED AND IS LESS INTENSE WHEN SHE SITS UP.
--- NOTE | 2022-09-08 16:57 | PC.NURSE ---
PT RESTING IN BED, STATES SHE FEELS MUCH BETTER AND WOULD LIKE TO BE DISCHARGED HOME. DR CHAHAL AWARE AND AGREEABLE TO POC. VSS. BP WITHIN NORMAL RANGE. NO NEW C/O AT THIS TIME.
--- NOTE | 2022-09-08 17:28 | EXP.DC.SUM ---
General Admission date:: 09/07/22 Discharge date: 09/08/22 HPI HPI HPI: Patient sitting up in bed. States she has a very mild headache but feels much better. She denies vision changes. No abdominal pain. BP has been stable and normotensive/mild range. She denies shortness of breath and chest pain. She admits to lower extremity swelling that is improving. She is voiding without difficulty. Hospital Course Hospital Course Hospital Course: Ms Radha Thomas is a 31 yo P1001, 4 days s/p PLTCS, who presented to [facility] ED with complaint of headache that started at 2100 last night, 09/06/22. She states headache was mild and she figured she just needed sleep or it could be from the spinal. However, at 0300 she woke up with severe headache. Headache continued to increase until 0800 this morning she could not stand the pain any more. She admits initially headache was better lying flat but as time went on the headache was present lying flat but worse with standing. She states her BP were normal, mild range, at home. She also admits to stress with the unexpected loss of a loved on yesterday. She is formula feeding. She denies vision changes. Denies chest pain and shortness of breath. Admits to lower extremity swelling that has been present since delivery. No calf tenderness. She was started on mag sulfate. It was continued for 22 hours. Mag level this morning at 1000 was 7.3. She received morphine, oxycodone and Tylenol for headache with only temporary relief. Cardiology was consulted. EKG came back with sinus rhythm and ventricular bigeminy.? Her PVCs have a left bundloid appearance consistent with coming from the RVOT. Cardiology started the patient on diltiazem and gave a dose of Lasix IV 40mg. Her metoprolol was held. CT scan was negative for acute abnormality. Echo was performed. Anesthesia was consulted for possible spinal headache. BPs from time of admission were very elevated, SBP was as high as 200. This morning SBP has ranged 120-140s and HR has ranged 60-80. Once blood pressures normalized she was given Toradol 60 mg IV with marked improvement in headache. Patient was feeling much better and requested to go home. Discharged to home with instructions to follow-up as scheduled with OB and to call her director presales at to be seen within a week. Exam Data for Last 24 hours Vital signs and Labs for Last 24 Hours: Temp Pulse Resp BP Pulse Ox 98.2 F 70 16 144/74 H 99 09/08/22 09:20 09/08/22 16:00 09/08/22 15:30 09/08/22 15:30 09/08/22 09:20 Laboratory Results - last 24 hr 09/08/22 09:57: Magnesium 7.3 H D I & O for Last 24 hours: Intake & Output 09/05/22 09/06/22 09/07/22 09/08/22 23:59 23:59 23:59 23:59 Intake Total 2320 / 2320 Output Total 8500 / 8500 700 / 700 Balance -8500 / -8500 1620 / 1620 Weight 220 lb Constitutional Constitutional: no acute distress *Routine HEENT Exam Head: Present normocephalic Eye: Absent conjunctivae pink ENT: Present mucous membranes moist *Routine Neck Exam Neck: Present full ROM *Routine Respiratory Exam Respiratory: Present CTA bilaterally and normal respiratory effort *Routine Cardiovascular Exam Cardiovascular: Present RRR *Routine Abdominal Exam Abdominal: Present soft and normoactive bowel sounds; Absent tenderness or distended *Routine Rectal Exam Patient deferred: visual exam *Routine Exam Patient deferred: external exam *Routine Extremities Exam Extremities: Present edema (+2 bilateral lower extremity edema) and full ROM; Absent calf tenderness *Routine Neurological Exam Neurological: Present alert, oriented X3 and moving all extremities Routine Psychiatric Exam Psychiatric: Present normal affect Results Data Completed and Pending Labs on day of discharge: Labs from last 24 hours 09/08/22 09:57 Magnesium 7.3 H D DS: Diagnosis Discharge Diagnosis (1) S/P : Status: Acute Code(s): Z98.891 - History of uterine sca
== END 2022-09-08 17:50 | disposition home or self-care (01) | DRG 776 ==
LOC: ER 10:26 → OB 10:53
PROVIDERS: Admitting Provider Obstetrics & Gynecology; Emergency Provider Emergency Medicine; PCP Nurse Practitioner Family; Visit Provider Obstetrics & Gynecology
DX: O90.89 Other complications of the puerperium, not elsewhere classified (principal); O99.893 Other specified diseases and conditions complicating puerperium; D75.839 Thrombocytosis, unspecified; O90.81 Anemia of the puerperium; O11.5 Pre-existing hypertension with pre-eclampsia, complicating the puerperium; I49.3 Ventricular premature depolarization; R60.0 Localized edema
CPT/HCPCS: 36415; 70450; 80048; 80053; 81001; 83735; 84443; 84450; 84460; 84484; 84550; 85007; 85025; 85378; 85384; 85610; 85730; 87086; 87636; 93005; 93306; 94761; 99285; C9803; G0283; J3475; U0003; U0005